=== PATIENT | female | born 1960 | race Two or more races ===

== ENCOUNTER 2019-10-23 21:39 | Inpatient (IN) | payer MEDICAID ==
[~2019-10-23] VITALS: Ht 152.4 cm; Wt 59.9 kg
--- NOTE | 2019-10-24 | NUR ---
DIRECT ADMIT FROM [facility] IS A 58 Y.O ROMANIAN SPEAKING FEMALE WHO CAN UNDERSTAND LITTLE HUNGARIAN, ALERT, ORIENTED X3, ABLE TO VERBALIZE NEEDS, DENIES ANY PAIN, NO GUARDING OR GRIMACE, CAN FOLLOW SIMPLE COMMANDS, ON ROOM AIR, RECEIVED PATIENT ON A GURNEY, IV SITE ON LEFT AC PATENT, PATIENT ON TELE AT , AMBULATORY BUT FALL RISK PATIENT REPORTED ALCOHOL LEVEL AT 390, WAS FOUND TO BE UNRESPONSIVE AND NO PULSE PER FAMILY THAT CPR WAS PROVIDED, WHEN SHE WAS BROUGHT TO [facility], PATIENT POTASSIUM LEVEL LOW AT 3.3 AND 40 MEQ KDUR PO WAS GIVEN, ALSO IV ONE LITER WAS INFUSED, COVID SWAB DONE AND RESULT NEGATIVE, MAY REQUIRE ONE TO ONE OBSERVATION PATIENT WAS FOUND TO WANDER, NO HOME MEDICATION REPORTED, MD VEGA, IS THE ACCEPTING MD. BELONGINGS CHECK, BED LOCKED, CALL LIGHTS WITHIN REACH. ROOM ORIENTATION PROVIDED.
[2019-10-24 00:27] VITALS: BP 130/73
[2019-10-24 00:45] VITALS: BP 130/73
[2019-10-24] MEDS ORDERED: MAG HYDROX/AL HYDROX/SIMETH 30 ML UDC PO PRN (01:00)
[2019-10-24] MEDS ORDERED: HYDROCODONE/APAP 5/325MG TABLET PO PRN (01:00)
[2019-10-24] MEDS ORDERED: LORAZEPAM INJ 2 MG/ML VIAL IV PRN (01:00)
[2019-10-24] MEDS ORDERED: ONDANSETRON HCL/PF 4 MG/2 ML VIAL IVP PRN (01:00)
[2019-10-24] MEDS ORDERED: Folic acid 1 MG in IV D5W 50 ML IV SCH (01:00)
[2019-10-24] MEDS ORDERED: ZOLPIDEM TARTRATE 5 MG TABLET PO PRN (01:00)
[2019-10-24] MEDS ORDERED: ACETAMINOPHEN 325 MG TABLET PO PRN (01:00)
[2019-10-24] MEDS ORDERED: PHARMACY ADD 1 AMP MVI TO IVF DAILY ONE BAG XX PRN (01:00)
[2019-10-24] MEDS ORDERED: MAGNESIUM HYDROXIDE 30 ML UDC PO PRN (01:00)
[2019-10-24] MEDS ORDERED: Z GUARD REMEDY 2 OZ OINT TP PRN (01:00)
[2019-10-24] MEDS ORDERED: Thiamine 100 MG in IV D5W 50 ML IV SCH (01:00)
[2019-10-24] MEDS: IV NS 0.9% 1,000 ML IV SCH ×3 (01:37→23:16)
[2019-10-24] MEDS ORDERED: Folic acid 1 MG/0.2 ML VIAL ONE (02:02)
[2019-10-24] MEDS ORDERED: Thiamine 100 MG/ML VIAL ONE (02:02)
[2019-10-24] MEDS ORDERED: MVI ADULT 10ML VIAL = 1AMP 10 ML in IV NS 0.9% 1,000 ML IV PRN (02:30)
[2019-10-24 04:26] VITALS: BP 125/66
[2019-10-24 06:54] LABS: BASOPHILS % (AUTO) 0.3 % (0.0-2.0); EOSINOPHILS % (AUTO) 0.2 % (0.0-6.0); HEMATOCRIT 39 % (33-45); HEMOGLOBIN 13.1 g/dL (11.5-14.8); LYMPHOCYTES # (AUTO) 1.6 /CMM (0.8-4.8); LYMPHOCYTES % (AUTO) 12.6 % (20.0-44.0); MEAN CORPUSCULAR HGB CONC 34 g/dl (31.0-36.0); MEAN CORPUSCULAR VOLUME 98 fL (82-100); MONOCYTES # (AUTO) 0.5 /CMM (0.1-1.30); MONOCYTES % (AUTO) 4.2 % (2.0-12.0); NEUTROPHILS # (AUTO) 10.3 /CMM (1.8-8.9); NEUTROPHILS % (AUTO) 82.7 % (43.0-81.0); PLATELET COUNT (AUTO) 299 /CMM (150-450); RED BLOOD CELL COUNT(AUTO) 3.96 MIL/uL (4.0-5.2); WHITE BLOOD COUNT (AUTO) 12.5 K/uL (4.3-11.0)
[2019-10-24 07:09] LABS: CALCIUM, SERUM 8.5 mg/dL (8.5-10.1); CREATININE 0.6 mg/dL (0.6-1.3); MAGNESIUM 1.8 mg/dL (1.8-2.4); PHOSPHORUS 3.6 mg/dL (2.5-4.9); POTASSIUM 3.7 mmol/L (3.5-5.1)
--- NOTE | 2019-10-24 07:25 | NUR ---
310-2 TELE/RN NOTES PATIENT ALERT X3, ABLE TO COOPERATE WITH CARE, SLEPT SOUNDLY, RESPIRATIONS EVEN AND UNLABORED, ON IV HYDRATION AND WITH FOLIC AND THISMINE IV, ATTENDED ALL NEEDS, FLUIDS AT BEDSIDE, BED LOCKED, CALL LIGHTS WTIHIN REACH, WILL ENDORSE TO AM RN FOR BERNARDO. MANAGED PAIN, SAFETY MEASURES.
--- NOTE | 2019-10-24 07:30 | NUR ---
PLASTIC MAKER NOTES PT IN BED, AWAKE, ALERT AND ORIENTED, DENIES PAIN, RESPIRATIONS NORMAL, EATING BREAKFAST, STATES THAT SHE IS FEELING BETTER TODAY, IV FLUIDS INFUSING WELL, TOLERATING CURRENT DIET, NEEDS ATTENDED.
[2019-10-24 08:00] VITALS: BP 112/62
[2019-10-24] MEDS: THIAMINE HCL 100 MG TABLET PO SCH (08:47)
[2019-10-24] MEDS: FOLIC ACID 1 MG TABLET PO SCH (08:47)
[2019-10-24] MEDS: MULTIVITAMINS,THERAGRAN 1 UDTAB TABLET PO SCH (08:47)
--- NOTE | 2019-10-24 11:09 | NUR ---
MARINE BIOLOGIST NOTES PT SEEN AND EXAMINED BY DR. SAGE, PLAN OF CARE DISCUSSED WITH PT, VERBALIZED UNDERSTANDING, PT ABLE TO AMBULATE WITH STEADY GAIT TO THE BATHROOM, IV FLUIDS INFUSING WELL, CALL LIGHT PLACED WITHIN REACH.
[2019-10-24 16:00] VITALS: BP 109/65
--- NOTE | 2019-10-24 18:13 | NUR ---
PARTS SALESMAN NOTES PT IN BED, AWAKE, ALERT AND ORIENTED, WATCHING TV, NO COMPLAINT OF PAIN OR ANY DISCOMFORT, TOLERATES CURRENT DIET, IV FLUIDS INFUSING WELL, NO BEHAVIOR PROBLEM NOTED, ALL NEEDS ATTENDED.
--- NOTE | 2019-10-24 19:25 | NUR ---
TELERN SR ON THE MONITOR, A/O X4, STEADY GAIT, BRP/ NO NEEDS AT THIS TIME. STABLE FOR NOW. EAGER TO GO HOME. POSSIBLE DC IN AM
[2019-10-24 20:00] VITALS: BP 141/74
--- NOTE | 2019-10-24 21:30 | NUR ---
TELERN NEW IV LINE ON RIGHT WRIST WITH GOOD BLOOD RETURN, 24 GAUGE. PRESENT IVF CONTINUED. SNACKS PROVIDED.
[2019-10-25] VITALS: BP 134/67
[2019-10-25 00:30] VITALS: BP 134/67
[2019-10-25 04:00] VITALS: BP 149/84
[2019-10-25 04:57] VITALS: BP 149/84
--- NOTE | 2019-10-25 06:55 | NUR ---
TELERN REMAINS STABLE, POSSIBLE DC TODAY. LABS DRAWN.
--- NOTE | 2019-10-25 07:33 | NUR ---
BEET END SUPERVISOR NOTES PT IN BED, AWAKE, ALERT AND ORIENTED, NO COMPLAINT OF PAIN, BREATHING PATTERN NORMAL, IV FLUIDS INFUSING WELL, STATED SHE IS FEELING BETTER TODAY, CALL LIGHT WITHIN REACH, NEEDS ATTENDED.
[2019-10-25 07:52] LABS: BASOPHILS % (AUTO) 0.8 % (0.0-2.0); EOSINOPHILS % (AUTO) 3.5 % (0.0-6.0); HEMATOCRIT 37 % (33-45); HEMOGLOBIN 12.3 g/dL (11.5-14.8); LYMPHOCYTES # (AUTO) 2.1 /CMM (0.8-4.8); LYMPHOCYTES % (AUTO) 38.9 % (20.0-44.0); MEAN CORPUSCULAR HGB CONC 33 g/dl (31.0-36.0); MEAN CORPUSCULAR VOLUME 100 fL (82-100); MONOCYTES # (AUTO) 0.4 /CMM (0.1-1.30); MONOCYTES % (AUTO) 7.5 % (2.0-12.0); NEUTROPHILS # (AUTO) 2.7 /CMM (1.8-8.9); NEUTROPHILS % (AUTO) 49.3 % (43.0-81.0); PLATELET COUNT (AUTO) 243 /CMM (150-450); RED BLOOD CELL COUNT(AUTO) 3.73 MIL/uL (4.0-5.2); WHITE BLOOD COUNT (AUTO) 5.4 K/uL (4.3-11.0)
[2019-10-25 08:00] VITALS: BP 124/67
[2019-10-25 08:02] LABS: ALANINE AMINOTRANSFERASE 7 U/L (12-78); ALCOHOL, BLOOD < 3 mg/dL (0-0); ALKALINE PHOSPHATASE 50 U/L (46-116); ASPARTATE AMINOTRANSFERASE 20 U/L (15-37); BILIRUBIN,TOTAL 0.6 mg/dL (0.2-1.0); CALCIUM, SERUM 8.6 mg/dL (8.5-10.1); CARBON DIOXIDE 24 mmol/L (21-32); CHLORIDE 108 mmol/L (98-107); CREATININE 0.5 mg/dL (0.6-1.3); GLUCOSE 87 mg/dL (74-106); POTASSIUM 3.4 mmol/L (3.5-5.1); SODIUM SERUM 142 mmol/L (136-145); TOTAL PROTEIN, SERUM 6.5 g/dL (6.4-8.2); UREA NITROGEN, BLOOD 5 mg/dL (7-18)
[2019-10-25] MEDS: FOLIC ACID 1 MG TABLET PO SCH (08:08)
[2019-10-25] MEDS: MULTIVITAMINS,THERAGRAN 1 UDTAB TABLET PO SCH (08:08)
[2019-10-25] MEDS: THIAMINE HCL 100 MG TABLET PO SCH (08:08)
[2019-10-25] MEDS: IV NS 0.9% 1,000 ML IV SCH (08:09)
[2019-10-25] MEDS ORDERED: POTASSIUM CHLORIDE 20 MEQ TAB.PRT.SR PO SCH (10:30)
--- NOTE | 2019-10-25 13:00 | NUR ---
UX DESIGNER NOTES PT AWAKE, ALERT AND ORIENTED, SITTING IN BED, DENIES PAIN, NOT IN DISTRESS, ABLE TO AMBULATE TO THE BATHROOM WITH STEADY GAIT, SEEN BY DR. SAGE, DISCHARGE ORDER GIVEN, DISCHARGE INSTRUCTIONS PROVIDED TO PT, VERBALIZED UNDERSTANDING, PT'S DAUGHTER RUIZ INFORMED OF PT'S DISCHARGE, VERBALIZED UNDERSTANDING, BELONGINGS ACCOUNTED FOR, ASSISTED TO WHEELCHAIR, ASSISTED TO HOSPITAL LOBBY VIA WHEELCHAIR, PICKED UP BY SON, LEFT VIA PRIVATE CAR IN STABLE CONDITION.
== END 2019-10-25 13:00 | disposition home or self-care (01) | DRG 775 ==
LOC: TELE 23:49 → MED 10-25 11:18
PROVIDERS: ADMIT Nurse Practitioner Acute Care; ATTEND Nurse Practitioner Acute Care
DX: F10.129 Alcohol abuse with intoxication, unspecified (principal); E87.6 Hypokalemia; G93.41 Metabolic encephalopathy; Y90.8 Blood alcohol level of 240 mg/100 ml or more; D72.829 Elevated white blood cell count, unspecified; E78.5 Hyperlipidemia, unspecified
CPT/HCPCS: 36415; 80048-TC; 80053-TC; 80061-TC; 83735-TC; 84100-TC; 85025-TC; 87081-TC; G0378; G0480; J3411; J3490; J7030; J7060